=== PATIENT | male | born 1960 | race Caucasian/White ===

== ENCOUNTER 2017-08-19 07:36 | Emergency (ER) | payer OTHER ==
[~2017-08-19] VITALS: Ht 172.7 cm; Wt 66.0 kg
[2017-08-19 08:28] LABS: BASOPHILS % (AUTO) 0.3 % (0-1); EOSINOPHILS # (AUTO) 0.1 X10'3 (0-0.9); EOSINOPHILS % (AUTO) 1.5 % (0-6); HEMOGLOBIN 17.8 g/dl (14.0-17.9); LYMPHOCYTES % (AUTO) 28.5 % (21-51); MEAN CORPUSCULAR HEMOGLOBIN 33.8 PG (27.0-31.0); MEAN CORPUSCULAR HGB CONC 34.1 % (33.0-36.5); MEAN CORPUSCULAR VOLUME 99.1 FL (78-98); MEAN PLATELET VOLUME 7.5 FL (7.4-10.4); MONOCYTES # (AUTO) 0.6 X10'3 (0-0.9); MONOCYTES % (AUTO) 8.4 % (2-12); NEUTROPHILS # (AUTO) 4.2 X10'3 (1.8-7.7); NEUTROPHILS % (AUTO) 61.3 % (42-75); PLATELET COUNT 203 X10'3 (140-440); RED BLOOD COUNT 5.25 X10'6 (4.70-6.10); WHITE BLOOD COUNT 6.9 X10'3 (4.5-11.0)
[2017-08-19 08:46] LABS: ALANINE AMINOTRANSFERASE 31 U/L (12-78); ALBUMIN 3.8 G/DL (3.4-5.0); ALKALINE PHOSPHATASE 77 IU/L (46-116); ANION GAP 15 (8-16); ASPARTATE AMINO TRANSFERASE 24 U/L (10-37); BILIRUBIN,TOTAL 0.4 MG/DL (0.1-1.0); BLOOD UREA NITROGEN 8 MG/DL (7-18); BUN/CREATININE RATIO 9.4 (5.4-32.0); CALCIUM 8.7 MG/DL (8.5-10.1); CHLORIDE 105 MMOL/L (99-107); CREATININE 0.85 MG/DL (0.60-1.10); GLUCOSE 150 MG/DL (70-104); POTASSIUM 3.9 MMOL/L (3.5-5.1); SODIUM 142 MMOL/L (135-145); TOTAL CARBON DIOXIDE 21.7 MMOL/L (24-32); TOTAL PROTEIN 7.5 G/DL (6.4-8.2); eGFR > 90 ML/MIN
[2017-08-19 08:58] LABS: ETHANOL 0.256 GM/DL (0.0-0.010)
[2017-08-19 09:24] LABS: CLARITY,URINE CLEAR (Clear); COLOR,URINE YELLOW (Yellow); GLUCOSE, URINE NEGATIVE (Neg); KETONES,URINE NEGATIVE (Neg); LEUKOCYTE ESTERASE ,URINE NEGATIVE (Neg); NITRITES, URINE NEGATIVE (Neg); OCCULT BLOOD,URINE NEGATIVE (Neg); PROTEIN,URINE NEGATIVE (Neg); UROBILINOGEN,URINE 0.2 E.U/dL (0.2-1.0)
[2017-08-19 09:29] LABS: UA COLLECTION TYPE URINAL
[2017-08-19 09:33] LABS: URINE AMPHETAMINE SCREEN NEGATIVE (Neg); URINE BARBITUATE SCREEN NEGATIVE (Neg); URINE BENZODIAZEPINES SCREEN NEGATIVE (Neg); URINE CANNABINOID SCREEN POSITIVE (Neg); URINE COCAINE SCREEN NEGATIVE (Neg); URINE METHADONE SCREEN NEGATIVE (Neg); URINE OPIATE SCREEN NEGATIVE (Neg); URINE PHENCYCLIDINE SCREEN NEGATIVE (Neg)
[2017-08-19] MEDS ORDERED: LORazepam 1 MG tablet PO ONE (11:20)
[2017-08-19] MEDS ORDERED: RISP0.5T3 PO ×2 (14:46→15:13)
[2017-08-19] MEDS ORDERED: LORA1TAB PO (14:46)
[2017-08-19] MEDS ORDERED: PROP20TA6 PO (15:13)
[2017-08-19] MEDS ORDERED: PRAZ1CAP5 PO (15:13)
[2017-08-19] MEDS ORDERED: ALBU90AE INH (15:13)
[2017-08-19] MEDS ORDERED: DIPH50CA3 PO (15:13)
[2017-08-19] MEDS ORDERED: GABA-534 PO (15:13)
[2017-08-19] MEDS ORDERED: TIOT18CA3 IH (15:13)
[2017-08-19] MEDS ORDERED: BUPR100T6 PO (15:13)
[2017-08-19] MEDS ORDERED: TRAZ-146 PO (15:15)
[2017-08-19] MEDS ORDERED: ondansetron 4mg rapidly disintigrating tab PO PRN (16:00)
[2017-08-19] MEDS ORDERED: buprenorphine/naloxone 2-0.5mg sublingual tablet SL ONE ×3 (16:20→17:50)
[2017-08-19] MEDS ORDERED: buprenorphine/naloxone 2-0.5mg sublingual tablet SL PRN (18:45)
[2017-08-19] MEDS: gabapentin 400mg capsule PO SCH (20:08)
[2017-08-19] MEDS: propranolol 10mg tablet PO SCH (20:09)
[2017-08-19] MEDS: risperiDONE 0.5mg tablet PO SCH (20:13)
[2017-08-19] MEDS: prazosin 1mg capsule PO SCH (20:45)
[2017-08-19] MEDS: buPROPion SR 100mg tab PO SCH (20:45)
[2017-08-19] MEDS: albuterol 2.5 MG/3 ML nebule NEB SCH ×2 (21:00→22:07)
[2017-08-19] MEDS: traZODone 50mg tablet PO PRN (23:08)
[2017-08-20] MEDS: albuterol 2.5 MG/3 ML nebule NEB SCH ×4 (03:00→20:56)
[2017-08-20] MEDS: diphenhydrAMINE 25mg capsule PO PRN ×2 (05:04→21:36)
[2017-08-20] MEDS: ipratropium 0.5 MG/2.5ML nebule IH SCH ×4 (07:53→19:00)
[2017-08-20] MEDS: buPROPion SR 100mg tab PO SCH ×2 (08:00→21:35)
[2017-08-20] MEDS: propranolol 10mg tablet PO SCH ×2 (08:06→21:38)
[2017-08-20] MEDS: gabapentin 400mg capsule PO SCH ×3 (08:06→21:35)
[2017-08-20] MEDS: risperiDONE 0.5mg tablet PO SCH ×2 (08:06→21:37)
[2017-08-20] MEDS ORDERED: buPROPion SR 150mg tablet PO STA (12:54)
[2017-08-20] MEDS: buprenorphine/naloxone 2-0.5mg sublingual tablet SL SCH (15:05)
[2017-08-20] MEDS: traZODone 50mg tablet PO PRN (21:35)
[2017-08-20] MEDS: prazosin 1mg capsule PO SCH (21:38)
[2017-08-21] MEDS: LORazepam 1 MG tablet PO PRN ×3 (01:48→14:27)
[2017-08-21] MEDS: albuterol 2.5 MG/3 ML nebule NEB SCH ×2 (02:46→07:57)
[2017-08-21 05:52] VITALS: BP 109/66
[2017-08-21] MEDS: ipratropium 0.5 MG/2.5ML nebule IH SCH (07:00)
[2017-08-21] MEDS ORDERED: ipratropium/albuterol 3ml nebule NEB PRN (07:50)
[2017-08-21] MEDS: propranolol 10mg tablet PO SCH (08:29)
[2017-08-21] MEDS: risperiDONE 0.5mg tablet PO SCH (08:29)
[2017-08-21] MEDS: gabapentin 400mg capsule PO SCH ×2 (08:29→13:17)
[2017-08-21] MEDS: buPROPion SR 100mg tab PO SCH (08:29)
[2017-08-21] MEDS: buprenorphine/naloxone 2-0.5mg sublingual tablet SL SCH (08:29)
== END 2017-08-21 14:44 ==
LOC: ER 07:38
DX: F31.4 Bipolar disorder, current episode depressed, severe, without psychotic features (principal); F11.23 Opioid dependence with withdrawal; F10.129 Alcohol abuse with intoxication, unspecified; J44.9 Chronic obstructive pulmonary disease, unspecified; Z79.899 Other long term (current) drug therapy
CPT/HCPCS: 36415; 80053; 80305; 80320; 81003; 84443; 85025; 94640; 94760; 99285; Q0163

== ENCOUNTER 2019-04-01 01:51 | Emergency (ER) | payer OTHER ==
[~2019-04-01] VITALS: Ht 175.3 cm; Wt 68.2 kg
[~2019-04-01 01:51] MED LIST: ALBU90AE INH; BUPR100T6 PO; DIPH50CA3 PO; GABA-534 PO; LORA1TAB PO; PRAZ1CAP5 PO; PROP20TA6 PO; RISP0.5T3 PO; TIOT18CA3 IH; TRAZ-219 PO
--- NOTE | 2019-04-01 02:05 | NUR ---
PT DISCLOSED HX OF SUICIDE ATTEMPTS: OD, HANGING, CUTTING, STARVATION
--- NOTE | 2019-04-01 02:13 | NUR ---
WHEN CHIEF SUSTAINABILITY OFFICER ATTEMPTING TO HELP PT INTO GREEN SCRUBS, PT STATES "IT AINT GONNA GO WELL IF I DONT GET A SMOKE." PT THEN BECAME ANGRY WHEN TOLD HE COULDNT LEAVE ER AND WALKED OUT OF AMBULANCE ENTRANCE, SMOKED FOR 10 SECONDS, AND RETURNED BACK THROUGH THE SAME DOORS. PT STATES "THERE THATS ALL I WANTED. MY LAST SMOKE." AND RETURNED BACK TO HIS ROOM. MD MADE AWARE OF SITUATION.
[2019-04-01] MEDS ORDERED: LORazepam 1 MG tablet PO ONE (02:20)
[2019-04-01] MEDS ORDERED: QUET300T2 PO (02:46)
[2019-04-01] MEDS ORDERED: CYCL-1 PO (02:46)
[2019-04-01 02:52] LABS: BASOPHILS % (AUTO) 0.7 % (0-1); EOSINOPHILS # (AUTO) 0.1 X10'3 (0-0.9); HEMATOCRIT 46.8 % (42.0-52.0); HEMOGLOBIN 16.2 g/dl (14.0-17.9); LYMPHOCYTES # (AUTO) 1.5 X10'3 (1.1-4.8); LYMPHOCYTES % (AUTO) 23.5 % (21-51); MEAN CORPUSCULAR HGB CONC 34.6 g/dL (33.0-36.5); MEAN CORPUSCULAR VOLUME 98.1 FL (78-98); MEAN PLATELET VOLUME 7.4 FL (7.4-10.4); MONOCYTES # (AUTO) 0.7 X10'3 (0-0.9); MONOCYTES % (AUTO) 11.4 % (2-12); NEUTROPHILS # (AUTO) 3.9 X10'3 (1.8-7.7); NEUTROPHILS % (AUTO) 62.4 % (42-75); PLATELET COUNT 215 X10'3 (140-440); RED BLOOD COUNT 4.78 X10'6 (4.70-6.10); RED CELL DISTRIBUTION WIDTH 13.8 % (11.5-14.5); WHITE BLOOD COUNT 6.3 X10'3 (4.5-11.0)
[2019-04-01 03:12] LABS: ALANINE AMINOTRANSFERASE 45 U/L (12-78); ALBUMIN 3.9 G/DL (3.4-5.0); ALBUMIN/GLOBULIN RATIO 1.1 (1.1-1.5); ALKALINE PHOSPHATASE 95 IU/L (46-116); ANION GAP 11 (8-16); ASPARTATE AMINO TRANSFERASE 39 U/L (10-37); BILIRUBIN,TOTAL 0.4 MG/DL (0.1-1.0); BLOOD UREA NITROGEN 9 MG/DL (7-18); BUN/CREATININE RATIO 10.1 (5.4-32.0); CALCIUM 8.5 MG/DL (8.5-10.1); CHLORIDE 108 MMOL/L (99-107); CREATININE 0.89 MG/DL (0.60-1.10); GLUCOSE 91 MG/DL (70-104); SODIUM 144 MMOL/L (135-145); TOTAL PROTEIN 7.4 G/DL (6.4-8.2); eGFR 87 ML/MIN
[2019-04-01 03:18] LABS: URINE AMPHETAMINE SCREEN NEGATIVE (Neg); URINE BARBITUATE SCREEN NEGATIVE (Neg); URINE BENZODIAZEPINES SCREEN NEGATIVE (Neg); URINE CANNABINOID SCREEN POSITIVE (Neg); URINE COCAINE SCREEN NEGATIVE (Neg); URINE METHADONE SCREEN NEGATIVE (Neg); URINE OPIATE SCREEN NEGATIVE (Neg); URINE PHENCYCLIDINE SCREEN NEGATIVE (Neg)
--- NOTE | 2019-04-01 03:19 | NUR ---
REPORT CALLED TO [facility] DIOR IN OVERFLOW. LAP CUTTER TRUER OPERATOR ALEJANDRINA ESCORTED PT TO OVERFLOW BED 23 WITHOUT PROBLEM.
[2019-04-01 03:22] LABS: ETHANOL 0.126 GM/DL (0.0-0.010)
--- NOTE | 2019-04-01 03:23 | NUR ---
The patient moved to bed #23. He is cooperative but tearful. He has been medically cleared. He reports he has had approximately 20 prior psychiatric hospitalizations. He is a patient at the [facility] and currently lives in a intermediate residence. Reports hx of Bipolar with his first hospitalization at around 27. Reports he has lived in the [facility] for approximately 3 years. He reports he has been taking his medications as rx'd
--- NOTE | 2019-04-01 04:37 | NUR ---
The patient appears to be sleeping
[2019-04-01] MEDS ORDERED: cyclobenzaprine 10mg tablet PO PRN ×2 (06:50)
--- NOTE | 2019-04-01 06:51 | NUR ---
The patient appears to be sleeping
[2019-04-01] MEDS ORDERED: ipratropium 0.5 MG/2.5ML nebule IH PRN (06:55)
[2019-04-01] MEDS ORDERED: albuterol 2.5 MG/3 ML nebule NEB PRN (06:55)
--- NOTE | 2019-04-01 08:13 | NUR ---
Packet faxed to [facility]
--- NOTE | 2019-04-01 08:45 | NUR ---
Pt up at bedside eating breakfast tray.
--- NOTE | 2019-04-01 09:55 | NUR ---
Pt evaluated by [facility] worker and to be placed on 5150
--- NOTE | 2019-04-01 10:30 | NUR ---
Yadira sabillon in ED - 04/01/19 at 2334 by SERGO Pt sleeping but awoke by this RN to be notified of impending transfer to [facility] unit upstairs.
--- NOTE | 2019-04-01 12:54 | NUR ---
PT SLEEPING LAYING SUPINE, RESPIRATIONS EVEN AND UNLABORED. NO DISTRESS NOTED AT THIS TIME.
--- NOTE | 2019-04-01 13:18 | NUR ---
PT SITTING UP IN BED EATING LUNCH.
[2019-04-01 17:09] VITALS: BP 105/83
--- NOTE | 2019-04-01 19:00 | NUR ---
Pt resting in bed, on left side. No distress noted.
--- NOTE | 2019-04-01 19:50 | NUR ---
During 1:1. States anxiety 10/07, depressin 11/07, and endorses vague SI stating "I am here to keep myself safe. I don't think I can do that outside because I just don't want to live anymore." Pt states there is not a specific trigger for his current hospitlization, "I feel like this more or less all the time. It comes and goes. I feel very fed up with life right now, though." Pt became tearful when he voluntarily brought up his 's passing a couple years ago. "I miss her."Pt states he has a headache; PRN ibuprofen 600mg order obtained and administered. Mood: Anxious, Depressed; Affect: Blunted; Behavior: Cooperative and calm. Pt wants to go [facility] in [place]; currently resides at [facility]. Med Hx: Arthritis, COPD, Bipolar, PTSD, Multiple Sucide Attempts (OD, Hanging, Cutting, Starvation), Multiple Psych. Hospitlizations Social Hx: Pt states he has no friends or family.
[2019-04-01] MEDS ORDERED: ibuprofen tablet 400 MG TABLET PO PRN (20:00)
[2019-04-01] MEDS ORDERED: ibuprofen 200mg tablet PO PRN (20:12)
--- NOTE | 2019-04-01 20:40 | NUR ---
Pt eating a snack after HS medication adminstration then went to sleep.
[2019-04-01] MEDS ORDERED: quetiapine 100mg tablet PO SCH (21:00)
--- NOTE | 2019-04-01 21:35 | NUR ---
Client to be admitted to [facility] for SI per Dr. Pulido.
--- NOTE | 2019-04-01 22:30 | NUR ---
Pt sleeping but awoke by this RN to be notified of impending transfer to [facility] unit upstairs.
--- NOTE | 2019-04-01 23:15 | NUR ---
Pt transferred via wheelchair with Fausto Jerrica to [facility]. Pt discharged with all belongings.
== END 2019-04-01 23:15 ==
LOC: ER 01:52
DX: F31.9 Bipolar disorder, unspecified (principal); R45.851 Suicidal ideations; J44.9 Chronic obstructive pulmonary disease, unspecified; F17.200 Nicotine dependence, unspecified, uncomplicated; F12.90 Cannabis use, unspecified, uncomplicated; F11.90 Opioid use, unspecified, uncomplicated; Z88.8 Allergy status to other drugs, medicaments and biological substances; Z79.899 Other long term (current) drug therapy
CPT/HCPCS: 36415; 80053; 80305; 80320; 84443; 85025; 94640; 94760; 99285